=== PATIENT | female | born 1975 | race African-American/Black ===

== ENCOUNTER 2023-07-01 10:31 | Emergency (ER) | payer OTHER ==
[~2023-07-01] VITALS: Ht 160 cm; Wt 84.6 kg
[2023-07-01] MEDS ORDERED: PANT40TA29 PO (10:47)
[2023-07-01] MEDS ORDERED: AMLO1TAB24 PO (10:47)
[2023-07-01] MEDS ORDERED: B-12100021 PO (10:47)
[2023-07-01] MEDS ORDERED: LEXA1TAB PO (10:47)
[2023-07-01] MEDS ORDERED: NS 500 ML IV ONE (10:50)
[2023-07-01] MEDS ORDERED: ISOVUE-370 76% 100ML VIAL As Ordered ONE (11:02)
[2023-07-01] MEDS: NITROGLYCERIN 0.4MG SUBL TABLET SL PRN ×2 (11:12→11:35)
[2023-07-01 11:20] LABS: BASO % 0.9 % (0.0-1.0); EOS # 0.1 10^3/uL (0.0-0.5); EOS % 2.2 % (0.0-3.0); HEMATOCRIT 39.6 % (36.0-47.0); HEMOGLOBIN 12.6 g/dl (12.0-15.5); LYMPH # 1.8 10^3/uL (1.5-5.0); LYMPH % 39.6 % (24.0-44.0); MEAN CORPUSCULAR HEMOGLOBIN 26.9 pg (27.0-33.0); MEAN CORPUSCULAR HGB CONC 31.8 g/dl (32.0-36.5); MEAN CORPUSCULAR VOLUME 84.6 fl (80.0-96.0); MONO # 0.4 10^3/uL (0.0-0.8); MONO % 7.5 % (2.0-8.0); NEUTROPHILS # 2.3 10^3/uL (1.5-8.5); NEUTROPHILS % 49.6 % (36.0-66.0); PLATELET COUNT, AUTOMATED 309 10^3/uL (150-450); RED BLOOD COUNT 4.68 10^6/uL (4.00-5.40); WHITE BLOOD COUNT 4.7 10^3/uL (4.0-10.0)
[2023-07-01] MEDS ORDERED: MORPHINE 2 MG/ML 1ML VIAL IV ONE (11:25)
[2023-07-01 11:32] LABS: INR 1.03; PARTIAL THROMBOPLASTIN TIME 26.2 SECONDS (24.8-34.2); PROTHROMBIN TIME 13.2 SECONDS (12.5-14.5)
[2023-07-01 11:35] VITALS: BP 154/91
[2023-07-01 11:42] LABS: LIPASE 30 U/L (12-53)
[2023-07-01 11:43] LABS: CK-MB VALUE MASS < 1.0 NG/ML (<3.6)
[2023-07-01 11:45] LABS: ALBUMIN 4.1 G/DL (3.2-5.2); ALKALINE PHOSPHATASE 76 U/L (46-116); ALT/SGPT 23 U/L (7.0-40); AST/SGOT 27 U/L (<34); BILIRUBIN,DIRECT < 0.1 MG/DL (<0.4); BILIRUBIN,TOTAL 0.3 MG/DL (0.3-1.2); BLOOD UREA NITROGEN 11 MG/DL (9-23); CALCIUM LEVEL 9.7 MG/DL (8.5-10.1); CARBON DIOXIDE LEVEL 28 MMOL/L (20-31); CHLORIDE LEVEL 106 MMOL/L (98-107); CREATININE FOR GFR 0.85 MG/DL (0.55-1.30); GLOMERULAR FILTRATION RATE > 60.0 (>58); GLUCOSE, FASTING 102 MG/DL (60-100); POTASSIUM SERUM 4.3 MMOL/L (3.5-5.1); SODIUM LEVEL 142 MMOL/L (136-145); TOTAL PROTEIN 7.6 G/DL (5.7-8.2)
[2023-07-01 11:46] LABS: THYROID STIMULATING HORMONE 4.379 uIU/ML (0.55-4.78)
[2023-07-01 11:47] LABS: CPK CREATINE PHOSPHOKINASE 250 U/L (34-145); FREE T4 1.07 NG/DL (0.89-1.76)
[2023-07-01 11:56] LABS: RSV AMPLIFICATION NEGATIVE (NEGATIVE)
[2023-07-01 12:29] LABS: CK-MB VALUE MASS < 1.0 NG/ML (<3.6)
[2023-07-01 12:33] LABS: CPK CREATINE PHOSPHOKINASE 206 U/L (34-145); MB/CK RELATIVE INDEX 0.48 (< OR =4)
[2023-07-01 13:29] VITALS: BP 142/82; TEMP 98.7; O2SAT 100
== END 2023-07-01 13:30 | disposition home or self-care (01) ==
LOC: M ED 10:31
DX: R07.9 Chest pain, unspecified (principal); I10 Essential (primary) hypertension; E11.9 Type 2 diabetes mellitus without complications; E78.00 Pure hypercholesterolemia, unspecified; K21.9 Gastro-esophageal reflux disease without esophagitis; F41.9 Anxiety disorder, unspecified; Z79.899 Other long term (current) drug therapy
CPT/HCPCS: 71045; 71275; 80047; 80048; 80076; 82550; 82553; 83690; 84439; 84443; 84484; 85025; 85610; 85730; 87631; 93005; 93041; 94760; 96374; 99285; Q9967